=== PATIENT | male | born 1945 | race African-American/Black ===

== ENCOUNTER 2021-05-25 03:25 | Inpatient (IN) | payer OTHER ==
[~2021-05-25] VITALS: Ht 175.3 cm; Wt 74.8 kg
[2021-05-25 03:25] VITALS: BP 147/54
[2021-05-25 05:09] LABS: HEMOGLOBIN 9.3 gm/dL (14.0-18.0); RDW 19.8 % (10.5-14.5)
[2021-05-25 05:11] LABS: ABSOLUTE NEUTROPHILS 6.4 thou/uL (1.4-8.2); BASOPHILS 0.5 % (0.0-2.0); EOSINOPHILS 3.2 % (0.0-3.0); HEMATOCRIT 28.7 % (42.0-52.0); LYMPHOCYTES 27.5 % (24.0-44.0); MCH 26.5 pg (26.0-34.0); MCHC 32.5 g/dL (28.0-37.0); MCV 81.7 fL (80.0-100.0); MONOCYTES 6.6 % (1.0-8.0); PLATELET COUNT 415 thou/uL (150-400); POLYS 62.2 % (36.0-66.0); RBC 3.52 mil/uL (4.50-6.00); WBC 10.2 thou/uL (4.0-11.0)
[2021-05-25 05:18] LABS: CALCIUM 8.4 mg/dL (8.5-10.1); CREATININE 1.9 mg/dL (0.7-1.3); POTASSIUM 3.9 mmol/L (3.5-5.1)
[2021-05-25 05:25] LABS: ALBUMIN 2.5 g/dL (3.4-5.0); TOTAL BILIRUBIN 0.3 mg/dL (0.2-1.0); TOTAL PROTEIN 8.2 g/dL (6.4-8.2)
[2021-05-25 06:31] VITALS: BP 147/54
[2021-05-25 07:45] LABS: ALBUMIN 2.6 g/dL (3.4-5.0); TOTAL PROTEIN 8.3 g/dL (6.4-8.2)
[2021-05-25 07:56] VITALS: BP 126/61
[2021-05-25 10:54] LABS: % SATURATION 13 % (20-39); IRON 19 ug/dL (65-175); TIBC 149 ug/dL (250-450)
[2021-05-25 11:10] LABS: FOLIC ACID 19.7 ng/mL (8.6-58.9)
[2021-05-25 11:11] LABS: PROCALCITONIN 0.11 ng/mL (<0.50)
--- NOTE | 2021-05-25 11:48 | NUR ---
[age] YEAR OLD MALE ADMITTED TO [facility] ROOM 461. PT WAS BROUGHT INTO THE ER PER MAST FROM HOME AFTER FALLING FROM THE WHEELCHAIR. PT ALERT AND ORIENTED TIMES FOUR WITH AT FLAT SAD AFFECT. VSS, IVF INFUSING PER ORDER. PT C/O BLE PAIN PRN PAIN MEDICATION GIVEN WITH SOME RELEIF. BLE CELLULTIS WOUND CARE CONSULTED. PT TOLERATES MEDS AND MEALS. WILL CONTINUE TO MONITOR.
--- NOTE | 2021-05-25 15:33 | NUR ---
PT ADMITTED RELATED TO BILAT. LE CELLULITIS, SEPSIS. CM REVIEWED CHART AND SPOKE WITH CARE TEAM. CM MET WITH PT AT BEDSIDE THIS DAY. PT APPERARED TO BE A&O X4. CM ROLE INTRODUCED. PT INDICATED HE LIVES ALONE IN AN APARTMENT WITH ELEVATOR ACCESS. HE INDICATED THAT HE USES A POWER WC TO ASSIST WITH MOBILITY. HE INDICATED HE HAD BEEN ABLE TO TRANSFER HIMSELF. PT INDICATED HE HAD BEEN INDEPEDNENT WITH [facility]. PT INDICATED HE HAD BEEN ON SERVICE WITH [facility]. HE INDICATED THAT HIS PCP IS DR. ADITI BAGLEY. CM SPOKE WITH [facility] AND PT WAS ON SERVICE WITH THEM RELATED TO HIS BL LE WOUNDS THEY HAD BEEN ORDERED BY HIS PCP. PT INDICATED HE WOULDN'T BE RECEPTIVE TO SKILLED UPON DC. PT HOPES TO BE ABLE TO RETURN HOME WITH [facility] ONCE MEDICALLY STABLE. CM FOLLOWING REGARDING DC PLANNING.
[2021-05-25 15:48] VITALS: BP 125/46
[2021-05-25 19:56] VITALS: BP 148/52
[2021-05-25 22:06] LABS: GLYCOHEMOGLOBIN (HGB A1C) 5.7 % (4.8-5.6)
--- NOTE | 2021-05-26 03:22 | NUR ---
PT CARE ASSUMED WITH PT IN BED WATCHING TV AT 1900.PT IS A/O X4.PT IS ON BEDREST.PT HAS BLE EDEMA AND CELLULITIS.IV ACCES ON RT AC WITH NS AT 80CC/HR.PAIN MANAGED WITH TYLENOL.WOUND DRESSING DONE WITH SILVADINE/MORPHINE CREAM.PT IS ON RA.PT APPEARED TO BE IN NO ACUTE STRESS.WILL CONTINUE TO MONITOR
[2021-05-26 03:57] VITALS: BP 135/57
[2021-05-26 05:43] LABS: HEMOGLOBIN 7.9 gm/dL (14.0-18.0); MCH 27.6 pg (26.0-34.0); MCHC 34.5 g/dL (28.0-37.0); MCV 79.9 fL (80.0-100.0); RBC 2.87 mil/uL (4.50-6.00); RDW 19.5 % (10.5-14.5); WBC 9.6 thou/uL (4.0-11.0)
[2021-05-26 05:45] LABS: CALCIUM 7.7 mg/dL (8.5-10.1); CREATININE 1.5 mg/dL (0.7-1.3); POTASSIUM 4.1 mmol/L (3.5-5.1)
[2021-05-26] MEDS ORDERED: PREGABALIN50 MG PO (10:32)
[2021-05-26] MEDS ORDERED: LIDOCAINE35.44 GM TOP (10:32)
[2021-05-26] MEDS ORDERED: FLUDROCORTISON0.1 MG PO (10:34)
[2021-05-26] MEDS ORDERED: SANTYL OINTMENT30 G1 TOP (10:35)
[2021-05-26] MEDS ORDERED: ASPIRIN EC81 M1 PO (10:36)
[2021-05-26] MEDS ORDERED: NEURONTIN300 MG PO (10:37)
[2021-05-26] MEDS ORDERED: FEROSUL325 M1 PO (10:38)
[2021-05-26] MEDS ORDERED: ZOLOFT 50 MG TA50 MG PO (10:38)
[2021-05-26] MEDS ORDERED: SULFASALAZINE500 M1 PO (10:39)
[2021-05-26] MEDS ORDERED: DOXYCYCLINE HY100 MG PO (10:40)
[2021-05-26] MEDS ORDERED: PENTOXIFYLLINE400 MG PO (10:42)
[2021-05-26] MEDS ORDERED: ZESTRIL40 MG PO (10:43)
--- NOTE | 2021-05-26 16:11 | NUR ---
PT SEEN BY WC. PT ON IV VANC AND ZOSYN. CM GOT CALL FROM SAJI YANG WITH [facility]. CM FOLLOWING REGARDING DC PLANNING.
[2021-05-26 17:15] VITALS: BP 107/40
--- NOTE | 2021-05-26 18:38 | NUR ---
Assumed pt care at 10 am, vs stable. Wound care and dressing change done by wound care team. Pain is managed with medications, partial relief is noted. Stayed on the bed for most of the day, POC followed, endorsed tot he night nurse. Uses the urinal, stool sample pending.
[2021-05-26 19:20] VITALS: BP 120/55
[2021-05-27 05:23] LABS: HEMATOCRIT 23.8 % (42.0-52.0); HEMOGLOBIN 7.9 gm/dL (14.0-18.0); MCH 26.9 pg (26.0-34.0); MCV 81.3 fL (80.0-100.0); RBC 2.93 mil/uL (4.50-6.00); RDW 19.5 % (10.5-14.5); WBC 7.9 thou/uL (4.0-11.0)
[2021-05-27 05:46] LABS: CALCIUM 7.2 mg/dL (8.5-10.1); CREATININE 1.4 mg/dL (0.7-1.3); MAGNESIUM 1.8 mg/dL (1.8-2.4)
[2021-05-27 07:24] VITALS: BP 115/50
--- NOTE | 2021-05-27 08:50 | HC ---
[facility] [place] [address] CONSULTATION Name: GLADIS GIPSON Room #: 464-P ADM IN M.R.#: [id number] Admission: 05/25/21 Attend Phys: Jeremie Carter MD Discharge: Date of : 49 Report #: [id number] THIS REPORT FOR: cc: Percy Terrazas K. Steven DO Althoff, Jeffrey R. MD ~ DOC #: [id number] Joshua Anderson MD DATE OF SERVICE: 05/25/2021 CHIEF COMPLAINT: Bilateral lower extremity ulcerations. HISTORY OF PRESENT ILLNESS: This is a 75-year-old male patient with a history of rheumatoid arthritis and chronic ulcerations to both lower extremities. He is admitted to the hospital with increased pain, swelling and drainage to his legs and I have been asked to see him with regard to wound care. The patient has been receiving home health for dressing changes. He was originally admitted after having fallen out of his wheelchair. He states he has some pain in his knee, but the legs do not hurt quite as much. PAST MEDICAL HISTORY: Positive for history of peripheral artery disease, borderline diabetes, psoriatic arthritis, hypertension. He is wheelchair bound. SOCIAL HISTORY: Negative for alcohol or tobacco use. FAMILY HISTORY: Noncontributory. REVIEW OF SYSTEMS: CONSTITUTIONAL: The patient denies fever, chills, or weight loss. NEUROLOGICAL: The patient has generalized weakness. Denies focal weakness, some tingling. EYES: The patient denies visual changes, redness, or drainage. ENT: The patient denies earache, nasal drainage, sore throat. CARDIOVASCULAR: Denies chest pain, palpitations, or diaphoresis. PULMONARY: Denies cough or shortness of breath. GASTROINTESTINAL: Denies nausea, vomiting, diarrhea or abdominal pain. ORTHOPEDIC: The patient complains of pain in the left knee as well as swelling and ulceration, bilateral lower extremities. Others systems in a 14-point review of systems are negative. PHYSICAL EXAMINATION: VITAL SIGNS: At this time include temperature 36.6, pulse 99, respiration of 20, and blood pressure 125/46. GENERAL: This is a somewhat chronically ill-appearing male patient, appears to [place] [address] CONSULTATION Name: GLADIS GIPSON Room #: 464-P [facility] IN M.R.#: [id number] Admission: 05/25/21 Attend Phys: Jeremie Carter MD Discharge: Date of : 47 Report #: [id number] HEENT: Head normocephalic. Nose and throat clear. NECK: Supple. ABDOMEN: Soft, bowel sounds present. EXTREMITIES: Lower extremities demonstrate diminished distal pulses. He has venous dermatitis, bilateral lower extremities with multiple areas of ulceration both lower legs and ankle regions. There is mild erythema. This may just be inflammatory rather than infectious. 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 NEUROLOGIC: The patient is alert, oriented, and appropriate. LABORATORY DATA: Include sodium 138, potassium 3.9, chloride 105, CO2 20, BUN 70, creatinine 1.9, glucose 152. Albumin is 2.6. White blood cell count 10.2 with a hemoglobin of 9.3. CLINICAL IMPRESSION: 1. Venous ulcerations, bilateral lower extremities. 2. Venous stasis dermatitis 3. History of psoriatic arthritis. RECOMMENDATIONS: At this point in time, we will recommend continuation of his normal home medications. We will recommend topical gentamicin and Xeroform gauze to the open areas of his legs. We will recommend AmLactin to the venous dermatitis and compression with Kerlix and BENITO wrap, elevation at all times. We will check arterial Dopplers. Distal pulses are difficult to palpate. I appreciate being asked to see him in consultation. MD MIAH Yip/RAYMUNDO/KASIA <ELECTRONICALLY SIGNED> By: Joshua Anderson MD 05/27/21 0850 [id number] Joshua Anderson MD /chema
--- NOTE | 2021-05-27 13:50 | NUR ---
Nutrition: Pt admitted with fall, BLE cellulitis. Received wound consult. PMH reviewed. Hx DM but A1C 5.7, no accuchecks or DM meds. Generally eats 2 meals a day, eating well 75-100% of meals. RD discussed use of supplements, importance of protein/sources. pt voiced awareness. Adding ensure max daily. On ferrous sulfate. Do not recommend Carb controlled diet at this time. Pt voices stable weights, fluctuates between 165-175#. Current 165#. Low risk.
[2021-05-27 14:39] VITALS: BP 115/50
[2021-05-27 15:50] VITALS: BP 135/57
[2021-05-27] MEDS ORDERED: HYDROCODON-ACE1 EAC7 PO (16:01)
[2021-05-27] MEDS ORDERED: BACTRIM DS TAB1 EAC1 PO (16:01)
--- NOTE | 2021-05-27 16:25 | NUR ---
CARE TEAM INDICATED THAT PT IS MEDICALLY STABEL TO DC HOME THIS DAY. CM CALLED [facility] WHO PT HAD BEEN ON SERVICE WITH DIETETIC AIDE AND THEY INDICATED THAT THEY ARE ABLE TO RESUME SERVICES UPON DC. CM FAXED CLINIAL AND ORDERS TO [facility]. CM ARRANGED [facility] VAN MEDIEVAL ENGLISH LITERATURE PROFESSOR BETWEEN [phone]. PT IS AWARE AND AGREEABLE. NO OTHER CM INTERVENTION INDICATED. CASE CLOSED.
[2021-05-27 16:54] VITALS: BP 115/50
--- NOTE | 2021-05-27 17:07 | NUR ---
ASSUMED CARE OF PATIENT AT SHIFT CHANGE. ASSESSMENT CHARTED. MEDICATIONS ADMINISTERED PER EMAR. VSS. PATIENT IS A&OX4 AND IS ABLE TO MAKE NEEDS KNOWN. PATIENT IS CONSTANTLY VOICING PAIN; NERVE PAIN, RELIEVED BY SCHEDULED NERVE PAIN MEDS. IV ABX INFUSED ON NO ISSUES. WOUND CARE COMPLETE BY DR. BARROW, SEAT TRIMMER AND ARLENE. PATIENT UP TO CHAIR AND DID WELL. DEEMED MEDICALLY STABLE FOR DISCHARGE. PATIENT LEFT WITH WC TRANSPORTATION AT APPROX 1700. NO ISSUES NOTED
[2021-05-27 22:06] LABS: CYCLIC CITRULLINATED PEPTIDE 106 units (0-19)
== END 2021-05-27 17:35 | disposition home health service (06) | DRG 602 ==
LOC: ER 03:25 → 4W 05:44 → EROBS 05:44 → 4W 07:23
PROVIDERS: Emergency Medicine; Nurse Practitioner; Nurse Practitioner Family; ADMIT Internal Medicine; ATTEND Internal Medicine
DX: L03.116 Cellulitis of left lower limb (principal); N17.0 Acute kidney failure with tubular necrosis; E43 Unspecified severe protein-calorie malnutrition; L97.929 Non-pressure chronic ulcer of unspecified part of left lower leg with unspecified severity; L97.919 Non-pressure chronic ulcer of unspecified part of right lower leg with unspecified severity; I73.9 Peripheral vascular disease, unspecified; L03.115 Cellulitis of right lower limb; M19.90 Unspecified osteoarthritis, unspecified site; I87.2 Venous insufficiency (chronic) (peripheral); G62.9 Polyneuropathy, unspecified; N18.9 Chronic kidney disease, unspecified; E86.0 Dehydration; R53.81 Other malaise; L40.50 Arthropathic psoriasis, unspecified; M06.9 Rheumatoid arthritis, unspecified; G89.29 Other chronic pain; I12.9 Hypertensive chronic kidney disease with stage 1 through stage 4 chronic kidney disease, or unspecified chronic kidney disease; L30.8 Other specified dermatitis; M54.9 Dorsalgia, unspecified; Z60.2 Problems related to living alone; F32.9 Major depressive disorder, single episode, unspecified; D50.9 Iron deficiency anemia, unspecified; Z99.3 Dependence on wheelchair; Z79.82 Long term (current) use of aspirin; Z79.899 Other long term (current) drug therapy; Z79.52 Long term (current) use of systemic steroids; Z68.24 Body mass index [BMI] 24.0-24.9, adult
CPT/HCPCS: 10045

== ENCOUNTER → 2021-07-14 | Outpatient (CLI) | payer OTHER ==
[~2021-07-14] MED LIST: ASPIRIN EC81 M1 PO; BACTRIM DS TAB1 EAC1 PO; DOXYCYCLINE HY100 MG PO; FEROSUL325 M1 PO; FLUDROCORTISON0.1 MG PO; HYDROCODON-ACE1 EAC7 PO; LIDOCAINE35.44 GM TOP; NEURONTIN300 MG PO; NORCO5 PO; PENTOXIFYLLINE400 MG PO; PREGABALIN50 MG PO; SANTYL OINTMENT30 G1 TOP; SULFASALAZINE500 M1 PO; ZESTRIL40 MG PO; ZOLOFT 50 MG TA50 MG PO
== END ==
LOC: HYPER 09:14
PROVIDERS: ATTEND Emergency Medicine
DX: I87.333 Chronic venous hypertension (idiopathic) with ulcer and inflammation of bilateral lower extremity (principal); L97.812 Non-pressure chronic ulcer of other part of right lower leg with fat layer exposed; L97.822 Non-pressure chronic ulcer of other part of left lower leg with fat layer exposed; L03.115 Cellulitis of right lower limb; L03.116 Cellulitis of left lower limb; E11.40 Type 2 diabetes mellitus with diabetic neuropathy, unspecified; E11.51 Type 2 diabetes mellitus with diabetic peripheral angiopathy without gangrene; L40.52 Psoriatic arthritis mutilans; R60.0 Localized edema; R54 Age-related physical debility; R26.89 Other abnormalities of gait and mobility; E66.9 Obesity, unspecified; E44.0 Moderate protein-calorie malnutrition; M06.9 Rheumatoid arthritis, unspecified; F32.9 Major depressive disorder, single episode, unspecified; Z79.4 Long term (current) use of insulin; Z79.82 Long term (current) use of aspirin; Z68.25 Body mass index [BMI] 25.0-25.9, adult

== ENCOUNTER → 2021-07-21 | Outpatient (CLI) | payer OTHER | LOC: HYPER 09:20 | PROVIDERS: ATTEND Emergency Medicine | DX: I87.333 Chronic venous hypertension (idiopathic) with ulcer and inflammation of bilateral lower extremity (principal); L97.812 Non-pressure chronic ulcer of other part of right lower leg with fat layer exposed; L97.822 Non-pressure chronic ulcer of other part of left lower leg with fat layer exposed; L03.115 Cellulitis of right lower limb; L03.116 Cellulitis of left lower limb; E11.40 Type 2 diabetes mellitus with diabetic neuropathy, unspecified; E11.51 Type 2 diabetes mellitus with diabetic peripheral angiopathy without gangrene; L40.52 Psoriatic arthritis mutilans; R60.0 Localized edema; R54 Age-related physical debility; R26.89 Other abnormalities of gait and mobility; E66.9 Obesity, unspecified; E44.0 Moderate protein-calorie malnutrition; M06.9 Rheumatoid arthritis, unspecified; F32.9 Major depressive disorder, single episode, unspecified; Z79.4 Long term (current) use of insulin; Z79.82 Long term (current) use of aspirin; Z68.25 Body mass index [BMI] 25.0-25.9, adult ==

== ENCOUNTER → 2021-08-23 | Outpatient (CLI) | payer OTHER | LOC: HYPER 07:53 | PROVIDERS: ATTEND Emergency Medicine | DX: E11.622 Type 2 diabetes mellitus with other skin ulcer (principal); I87.333 Chronic venous hypertension (idiopathic) with ulcer and inflammation of bilateral lower extremity; L97.812 Non-pressure chronic ulcer of other part of right lower leg with fat layer exposed; L97.822 Non-pressure chronic ulcer of other part of left lower leg with fat layer exposed; L03.115 Cellulitis of right lower limb; L03.116 Cellulitis of left lower limb; E11.40 Type 2 diabetes mellitus with diabetic neuropathy, unspecified; E11.51 Type 2 diabetes mellitus with diabetic peripheral angiopathy without gangrene; L40.52 Psoriatic arthritis mutilans; R60.0 Localized edema; R54 Age-related physical debility; R26.89 Other abnormalities of gait and mobility; E66.9 Obesity, unspecified; E44.0 Moderate protein-calorie malnutrition; M06.9 Rheumatoid arthritis, unspecified; F32.9 Major depressive disorder, single episode, unspecified; Z79.4 Long term (current) use of insulin; Z79.82 Long term (current) use of aspirin; Z68.25 Body mass index [BMI] 25.0-25.9, adult ==

== ENCOUNTER → 2021-09-13 | Outpatient (CLI) | payer OTHER | LOC: HYPER 14:03 | PROVIDERS: ATTEND Emergency Medicine | DX: I87.333 Chronic venous hypertension (idiopathic) with ulcer and inflammation of bilateral lower extremity (principal); E11.622 Type 2 diabetes mellitus with other skin ulcer; L97.812 Non-pressure chronic ulcer of other part of right lower leg with fat layer exposed; L97.822 Non-pressure chronic ulcer of other part of left lower leg with fat layer exposed; E11.51 Type 2 diabetes mellitus with diabetic peripheral angiopathy without gangrene; E11.42 Type 2 diabetes mellitus with diabetic polyneuropathy; R60.0 Localized edema; R54 Age-related physical debility; R26.89 Other abnormalities of gait and mobility; L40.52 Psoriatic arthritis mutilans; L03.115 Cellulitis of right lower limb; L03.116 Cellulitis of left lower limb; E44.0 Moderate protein-calorie malnutrition; M06.9 Rheumatoid arthritis, unspecified; R21 Rash and other nonspecific skin eruption; L40.59 Other psoriatic arthropathy; E11.22 Type 2 diabetes mellitus with diabetic chronic kidney disease; N17.9 Acute kidney failure, unspecified; N18.9 Chronic kidney disease, unspecified; F41.0 Panic disorder [episodic paroxysmal anxiety]; F32.9 Major depressive disorder, single episode, unspecified; Z68.25 Body mass index [BMI] 25.0-25.9, adult; Z91.81 History of falling; Z79.4 Long term (current) use of insulin; Z79.82 Long term (current) use of aspirin; Z79.899 Other long term (current) drug therapy ==

== ENCOUNTER 2021-10-06 10:41 | Inpatient (IN) | payer OTHER ==
[~2021-10-06] VITALS: Ht 175.3 cm; Wt 70.1 kg
[2021-10-06 10:42] VITALS: BP 131/59
[2021-10-06 11:51] LABS: HEMATOCRIT 27.5 % (42.0-52.0); HEMOGLOBIN 8.7 gm/dL (14.0-18.0); MCH 25.4 pg (26.0-34.0); MCHC 31.8 g/dL (28.0-37.0); MCV 79.9 fL (80.0-100.0); PLATELET COUNT 457 thou/uL (150-400); RBC 3.44 mil/uL (4.50-6.00); RDW 21.2 % (10.5-14.5); WBC 26.4 thou/uL (4.0-11.0)
[2021-10-06 12:08] LABS: CALCIUM 8.4 mg/dL (8.5-10.1); CREATININE 4.2 mg/dL (0.7-1.3); POTASSIUM 4.9 mmol/L (3.5-5.1)
[2021-10-06 12:14] LABS: ALBUMIN 2.2 g/dL (3.4-5.0); TOTAL BILIRUBIN 0.5 mg/dL (0.2-1.0); TOTAL PROTEIN 8.6 g/dL (6.4-8.2)
[2021-10-06 13:03] LABS: ABSOLUTE NEUTROPHILS 21.1 thou/uL (1.4-8.2)
[2021-10-06 22:38] VITALS: BP 101/44
[2021-10-06 23:05] VITALS: BP 101/44
[2021-10-06 23:22] VITALS: BP 109/51
[2021-10-07 04:00] VITALS: BP 111/45
--- NOTE | 2021-10-07 05:30 | NUR ---
ADMIT PT ADMITTED TO ROOM 359 FROM ED BEING ADMITED WITH BILATERAL LOWER EXTREMETY CELLULITIS, AND ARF. IV TO RH INFUSING NS@75CC/HR. PT ORIENTED TO ROOM, CALL LIGHT SYSTEM, AND POC. BOTH LOWER LEGS WITH ERYTHEMA, WEEPING, LARGE AREAS OF SLOUGH. PICTURES TAKEN AND PLACED IN CHART. ANTIBIOTICS ADMINISTERED ORDERED AND YDROCODONE FOR PAIN. CONTINUE POC.
[2021-10-07 07:38] VITALS: BP 93/44
[2021-10-07 08:52] LABS: HEMATOCRIT 27.9 % (42.0-52.0); HEMOGLOBIN 8.5 gm/dL (14.0-18.0); MCH 25.1 pg (26.0-34.0); MCHC 30.4 g/dL (28.0-37.0); MCV 82.4 fL (80.0-100.0); PLATELET COUNT 461 thou/uL (150-400); RBC 3.39 mil/uL (4.50-6.00); RDW 21.5 % (10.5-14.5); WBC 23.3 thou/uL (4.0-11.0)
[2021-10-07 09:16] LABS: ALBUMIN 1.9 g/dL (3.4-5.0); MAGNESIUM 2.2 mg/dL (1.8-2.4); TOTAL BILIRUBIN 0.5 mg/dL (0.2-1.0); TOTAL PROTEIN 6.9 g/dL (6.4-8.2)
[2021-10-07 09:26] LABS: CREATININE 3.2 mg/dL (0.7-1.3)
[2021-10-07 10:50] LABS: POTASSIUM 4.8 mmol/L (3.5-5.1)
[2021-10-07 12:19] LABS: ABSOLUTE NEUTROPHILS 21.9 thou/uL (1.4-8.2)
[2021-10-07 12:20] LABS: ANISOCYTOSIS 1+; BURR CELLS FEW; MACROCYTES 1+; TARGET CELLS FEW
--- NOTE | 2021-10-07 14:07 | NUR ---
INITIAL ASSESSMENT: Received consult. TJ reviewed chart and spoke with nursing and attending physician. Pt was admitted from home. Pt was at Dr. Moreira's office for a wound care follow up appt. Pt with BLE cellulitis. Pt is currently on IV abx. Wound care and ID consulted. TJ met with pt at bedside. Introduced role of SW. Pt is alert/orientated x 4. Pt reports he lives at home alone in an apt. The apt building has an elevator. Prior to admission, pt was using a scooter for mobility. Pt is currently on service with [facility]. Pt's PCP is DR. Harish Terrazas. Pt states his sister and nephew are supportive. Therapy evals ordered. Pt was unable to work with therapy earlier today due to BLE pain. No weekend discharge planned. TJ confirmed with Samantha at [facility] that pt is on service. Pt will need insurance auth for post-acute placement. TJ is following to assist as needed with discharge planning.
[2021-10-07 15:31] VITALS: BP 105/52
--- NOTE | 2021-10-07 18:35 | NUR ---
assumed care of pt at 0700. pt alert and oriented, lethargic. bp low but stable. complains of pain BLE. dressings changed per order. condom cath in place. ok to eat per speech therapy. turned q2h and prn. pt calls out appropriately. wcm.
[2021-10-07 19:33] VITALS: BP 84/47
[2021-10-07 21:10] VITALS: BP 100/50
[2021-10-08 00:18] VITALS: BP 99/48
[2021-10-08 05:00] VITALS: BP 95/47
--- NOTE | 2021-10-08 05:53 | NUR ---
Patient making some progress towards outcome goals. Vital signs and rhythm stable. High fall risks, fall precautions in place. Cellulitis BLE, dressing dry and intact. High fall risks, fall precautions in place. Uses call light appropriately for needs.
[2021-10-08 08:01] VITALS: BP 93/49
[2021-10-08 15:44] VITALS: BP 97/50
--- NOTE | 2021-10-08 18:09 | NUR ---
assumed care of pt at 0700. pt alert and oriented, somewhat lethargic. small appetite. condom cath in place. dressings changed per order. analgesics given prn. turned q2h and prn. vitals stable. ivf infusing per order. code clerk unable to draw vanc trough - rescheduled for tomorrow. calls out appropriately. no evnets on telemetry.
[2021-10-08 20:45] VITALS: BP 102/42
[2021-10-09 06:30] VITALS: BP 93/53
[2021-10-09 07:18] VITALS: BP 100/53
--- NOTE | 2021-10-09 07:45 | NUR ---
Requested pain med for leg pain with some relief. He has been repositioned for comfort. He slept well during the night. Bed alarm on for safety and he calls appropriately. Dressing on bilateral lower extremities intact , elevated with pillows. IV on right hand came out and new one placed on left hand last night.
[2021-10-09 15:16] VITALS: BP 94/51
--- NOTE | 2021-10-09 18:43 | NUR ---
PATIENT WAS ALERT AND ORIENTED X4 THIS SHIFT. HE HAS BEEN VERY SLEEPY BUT IS EASILY ROUSED. PATIENT HAS BEEN LEANING TOWARDS HIS LEFT SIDE, PATIENT REPORTS THAT HE ALWAYS LEANS TOWARDS HIS LEFT SIDE. PATIETNS LUNGS ARE CLEAR BUT DIMINISHED IN THE BASES. HE IS ON ROOM AIR. PATIENT IS MS TELE AND HAS BEEN IN FIRST [employer]GREE AV BLOCK BUT SINUS RYTHM IN THE 80'S. PATIENT HAS AN EXTERNAL MALE CATHETER. HIS URINE IS YELLOW. HIS LAST BM WAS ON 10/05/21. PATIENT HAS CELLULITIS TO BOTH OF HIS LOWER EXTREMITIES. PATIENTS DRESSING WERE CHANGED THIS SHIFT. PATIENTS IV IS IN HIS LEFT HAND WITH NS AT 126. PATIENTS VANC TROUGH WAS 15. PATIENT WILL CONTINUE TO BE MONITORED.
[2021-10-09 19:04] VITALS: BP 99/50
[2021-10-10 04:00] VITALS: BP 101/52
--- NOTE | 2021-10-10 06:02 | NUR ---
Patient progressingtowards outcome goals. Chronic bilateral legs burning,patient denies need for pain medication now. Prefers to take before dressing changes. Vital signs and rhythm stable. IVFluids infusing. External male catheter intact, good urine output. High fall risks, fall precautions in place.
[2021-10-10 07:08] VITALS: BP 108/45
[2021-10-10 08:43] LABS: WBC 13.6 thou/uL (4.0-11.0)
[2021-10-10 08:44] LABS: HEMATOCRIT 20.7 % (42.0-52.0); MCH 25.5 pg (26.0-34.0); MCHC 31.6 g/dL (28.0-37.0); MCV 80.7 fL (80.0-100.0); RBC 2.57 mil/uL (4.50-6.00); RDW 22.1 % (10.5-14.5)
[2021-10-10 08:50] LABS: CALCIUM 6.5 mg/dL (8.5-10.1); CREATININE 1.8 mg/dL (0.7-1.3); MAGNESIUM 1.3 mg/dL (1.8-2.4); POTASSIUM 3.7 mmol/L (3.5-5.1)
[2021-10-10 08:54] LABS: HEMOGLOBIN 6.5 gm/dL (14.0-18.0)
--- NOTE | 2021-10-10 13:14 | NUR ---
10/10/21 1314 MADE PT AWARE EARLIER THAT HIS HEMOGLOBIN WAS LOW AND ,IGHT NEED A TRANSFUSION. WENT IN TO GET CONSENT, PT REFUSE TRANSFUSION KRISHNA, STATED LAST TIME HE HAD A TRANSFUSION HE HAD SOME ITCHING AND NOT SURE IF HE WANTS IT, RIGHT NOW. WILL LIKE TO WAIT UNTIL TOMORROW TO SEE IF HIS H&H COMES UP. DR. MONTGOMERY MADE AWARE OF PT DECISION. TRANSUSION ORDER IS ON HOLD KRISHNA.
--- NOTE | 2021-10-10 14:59 | NUR ---
TJ reviewed chart and spoke with nursing and attending physician. ID consulted. Pt is on IV abx. TJ met with pt at bedside to discuss discharge plan. Recommendation made for pt to go to post-acute for wound care and therapy. TJ discussed options with pt. Pt states he has been to [facility] in the past. Pt would like to consider alternate options. In-network SNF list provided to pt. Pt requests referral to be sent to [facility]. TJ faxed referral and notified Emma and Jonathon in admissions of new referral. Will need insurance auth for admission to SNF. TJ is following to assist as needed with discharge planning.
[2021-10-10 15:12] VITALS: BP 110/58
[2021-10-10 18:57] VITALS: BP 106/43
[2021-10-11 05:34] LABS: MCH 25.8 pg (26.0-34.0); MCV 80.5 fL (80.0-100.0); RBC 2.47 mil/uL (4.50-6.00); RDW 22.3 % (10.5-14.5); WBC 11.7 thou/uL (4.0-11.0)
--- NOTE | 2021-10-11 05:44 | NUR ---
PT MAKING SLOW PROGRESS TOWARDS GOALS. GIVEN LORTAB FOR PAIN PER ORDERS. "IT HELPS A LITTLE I GUESS." DRESSINGS TO LEG D/I.
[2021-10-11 05:51] LABS: HEMATOCRIT 19.9 % (42.0-52.0); HEMOGLOBIN 6.4 gm/dL (14.0-18.0)
[2021-10-11 06:07] LABS: CALCIUM 6.4 mg/dL (8.5-10.1); CREATININE 1.8 mg/dL (0.7-1.3); POTASSIUM 3.5 mmol/L (3.5-5.1)
[2021-10-11 07:08] VITALS: BP 85/49
--- NOTE | 2021-10-11 08:08 | HC ---
[facility] [place] [address] CONSULTATION Name: GLADIS GIPSON Room #: 359-P [facility] IN .R.#: [id number] Admission: 10/06/21 Attend Phys: Steve Mejia MD Discharge: Date of : 47 Report #: [id number] THIS REPORT FOR: cc: Percy Terrazas K. Steven DO Barry, Joseph W. MD ~ DATE OF SERVICE: 10/10/2021 INFECTIOUS DISEASE CONSULTATION REASON FOR EVALUATION: Bilateral lower extremity inflammatory eruption with chronic ulcerations complicated by deep-seated infection. HISTORY OF PRESENT ILLNESS: Chart reviewed. The patient examined. This is a 76-year-old gentleman who has underlying diabetes mellitus, psoriatic arthritis and has known vasculopathy and peripheral neuropathy. Apparently, he is wheelchair bound. He is unable to give details of his history. Apparently, he has had longstanding lower extremity ulcers, venous stasis insufficiency, who was admitted at the request of the wound care center with worsening appearance of the legs. He notes severe pain bilaterally. It is not clear to him whether he had fevers. He has had a diminished p.o. intake. He has had a weight loss of perhaps 30 pounds. He was felt to have a deep-seated infection, so we started on empiric therapy with vancomycin and Zosyn. He did have blood cultures collected at the time, which were sterile thus far. ALLERGIES: None known. CURRENT MEDICATIONS: Vancomycin, Zosyn, gabapentin, aspirin, sertraline. PAST MEDICAL HISTORY: As described above, borderline diabetes, hypertension, peripheral arterial disease, neuropathy, psoriatic arthritis. He is wheelchair bound. SOCIAL HISTORY: Nonsmoker, no ethanol, no illicit drug use. FAMILY HISTORY: Noncontributory. REVIEW OF SYSTEMS: As described above. PHYSICAL EXAMINATION: GENERAL: He is chronically ill. He is pleasant, at least mildly encephalopathic. He is clearly chronically ill-appearing, undernourished, in moderate distress. VITAL SIGNS: Temperature 98.6, pulse 99, respirations 16, blood pressure 108/45. SKIN: Warm, dry. [facility] [address] [place] [address] CONSULTATION Name: GLADIS GIPSON Room #: 359-P [facility] IN ..#: [id number] Admission: 10/06/21 Attend Phys: Steve Mejia MD Discharge: Date of : 47 Report #: [id number] HEENT: Normocephalic. Extraocular muscles intact. NECK: Supple. LUNGS: Diminished breath sounds. HEART: Borderline tachycardic, appears to be regular. I do not appreciate a murmur. ABDOMEN: Generally soft, no apparent tenderness. EXTREMITIES: Bilateral lower extremities were evaluated. I removed the dressings. There is a marked inflammatory eruption involving at least retirement up the lower extremities bilaterally. It involves the foot. There is purulent drainage associated with the distal foot bilaterally. Changes of chronic dermopathy suggests he has underlying venous stasis insufficiency, probably some arterial disease as well. Exquisitely tender to palpation. Wounds are primarily superficial except with the 1 that potentially has some depth to it involving the plantar aspect on the right. GENITOURINARY AND RECTAL: Deferred. LABORATORY DATA: Most recent CBC, white count of 13.6, H and H 6.5 and 20.7, platelets of 354. Electrolytes: Sodium 142, potassium 3.7, chloride 114, bicarbonate 16, anion gap of 12, BUN and creatinine 13 and 1.8. Vancomycin trough of 15. Blood cultures sterile thus far. Sed rate greater than 125. Liver function tests otherwise unremarkable. Albumin 1.9, total protein 6.9. Blood cultures described above. The right foot was evaluated with plain film showed no fracture or osseous destruction. ASSESSMENT AND PLAN: Bilateral lower extremity inflammatory eruption, extensive ulceration. It appears to be primarily superficial complicated by skin and soft tissue infection. Now the clinical appearance certainly suggests there may be more deep involvement. We will continue empiric therapy with vancomycin and Zosyn. Wound care as prescribed. Whether we need additional imaging, would probably benefit from operative debridement at this point. I will discuss with Dr. Bautista, wound care. Since he has significant overall disease burden, he may be at significant risk for clinical deterioration and nosocomial related complications. <ELECTRONICALLY SIGNED> By: Jorge Cason MD 10/11/21 0808 [id number] Jorge Cason MD /nt
[2021-10-11 10:06] VITALS: BP 113/56; BP 115/58; BP 127/63
--- NOTE | 2021-10-11 11:06 | NUR ---
TJ reviewed chart and spoke with nursing and attending physician. Pt to have blood transfusion today. Hemoglobin dropped to 6.4. Pt remains on IV abx. [facility] is able to accept pt pending insurance authorization. TJ met with pt at bedside to provide update. Pt is agreeable with plan to d/c to [facility]. TJ updated Emma and Jonathon in admissions at [facility]. Request for insurance auth submitted this morning. Jonathon to meet with pt at bedside today. TJ is following to assist as needed with discharge planning.
[2021-10-11 15:10] VITALS: BP 105/53
--- NOTE | 2021-10-11 15:49 | NUR ---
PT AGREED FOR BLOOD TRANSFUSION TODAY. TRASFUSION GIVEN NO REACTION NOTED. VITAL SIGNS STABLE. WOUND CARE COMOLETED BY WOUND CARE TEAM. EXTERNAL CATHETER IN PLACE. INCONTINENT AT TIMES. FALL PRECAUTIONS IN PLACE. DENIES ANY NEEDS KRISHNA, WILL CONTINUE TO MONITOR
[2021-10-11 17:13] LABS: HEMATOCRIT 24.5 % (42.0-52.0); HEMOGLOBIN 7.9 gm/dL (14.0-18.0)
[2021-10-11 18:58] VITALS: BP 114/59
[2021-10-12 04:06] VITALS: BP 115/62
[2021-10-12 06:01] LABS: HEMATOCRIT 23.7 % (42.0-52.0); HEMOGLOBIN 7.7 gm/dL (14.0-18.0); MCH 26.7 pg (26.0-34.0); MCHC 32.7 g/dL (28.0-37.0); MCV 81.7 fL (80.0-100.0); RBC 2.9 mil/uL (4.50-6.00); RDW 21.9 % (10.5-14.5); WBC 12.3 thou/uL (4.0-11.0)
--- NOTE | 2021-10-12 06:09 | NUR ---
PT MAKING SLOW PROGRESS TOWARDS GOALS. PT REPORTING PAIN FREQUENTLY AT 6/10. STATES HE DOESN'T BELIEVE THAT THE LORTAB HELPS HIS PAIN MUCH. PT ASLEEP X2 AFTER DOSING WITH LORTAB PER ORDERS, OVERNIGHT.
[2021-10-12 07:15] VITALS: BP 119/59
[2021-10-12] MEDS ORDERED: CIPRO500 M1 PO (11:04)
[2021-10-12] MEDS ORDERED: MINOCYCLINE HC100 M2 PO (14:34)
--- NOTE | 2021-10-12 14:48 | NUR ---
DISCHARGE NOTE: TJ reviewed chart and spoke with nursing and attending physician. Pt is medically stable for discharge. SW was notified by [facility] admissions that they received insurance auth and can accept pt today. W/c van transportation scheduled for [phone] per facility's arrangements. Pt has his own electric w/c in his room. TJ faxed discharge ppwk to [facility]. Confirmed info was received. TJ met with pt at bedside to provide update. Pt agreeable with discharge plan. TJ offered to contact pt's family to notify them of pt's discharge. Pt states he will let them know. Chart copy requested. Nursing provided with number to call report. SW was notified that pt states he does not feel ready for discharge. TJ notified attending physician and requested physician speak with pt. No additional SW needs identified at this time. TJ updated Jeanine in intake at [facility] of pt's discharge disposition. TJ is available to assist should needs arise.
--- NOTE | 2021-10-12 15:19 | NUR ---
called [facility] to give them report, no answer. will try again.
--- NOTE | 2021-10-12 17:24 | NUR ---
wound care completed, pictures taken. order for discharge to [facility] in. iv and tele d/c. All belongings with pt. Pt went in his electric wheelchair. Called [facility] a couple times to give report, no answer.
--- NOTE | 2021-10-19 08:36 | HC ---
[facility] [place] [address] CONSULTATION Name: GLADIS GIPSON Room #: 359-P [facility] IN M.Mat.#: [id number] Admission: 10/06/21 Attend Phys: Steve Mejia MD Discharge: 10/12/21 Date of : 47 Report #: [id number] THIS REPORT FOR: cc: Percy Terrazas K. Steven DO Althoff, Jeffrey R. MD ~ DATE OF SERVICE: 10/07/2021 CHIEF COMPLAINT: Bilateral lower extremity ulcerations. HISTORY OF PRESENT ILLNESS: This is a 76-year-old male patient who presented to the Emergency Department with lower extremity ulcerations that are worsening. He has been seen in the wound clinic by Dr. Titus who have also seen him here in the hospital. He was last hospitalized in May. He is mostly somnolent at this time, not able to offer much input about himself. The patient has a history of rheumatoid arthritis and psoriasis. PAST MEDICAL HISTORY: Peripheral arterial disease, hypertension, borderline diabetes, psoriatic arthritis, history of sciatica, peripheral neuropathy. He is wheelchair bound. SOCIAL HISTORY: Negative for alcohol or tobacco use. FAMILY HISTORY: Noncontributory. MEDICATIONS: At this time includes aspirin, collagenase, fludrocortisone, gabapentin, hydrocodone, lidocaine, pregabalin, sertraline, Bactrim. ALLERGIES: No known drug allergies. REVIEW OF SYSTEMS: Mostly not obtainable as the patient is somnolent and unable to answer questions at this time. PHYSICAL EXAMINATION: VITAL SIGNS: At this time include temperature 36.3, pulse 82, respiration 18, blood pressure 93/44. GENERAL: This is a chronically ill-appearing male patient who appears to be once again sleeping. HEENT: Head is normocephalic. NECK: Supple. LUNGS: Diminished. HEART: Irregular. ABDOMEN: Soft, bowel sounds present. EXTREMITIES: Lower extremities demonstrate diminished distal pulses, but the feet are pink and there is only slightly delayed capillary refill. He has venous stasis dermatitis involving both lower legs as well as the feet with [facility] [address] [place] [address] CONSULTATION Name: GLADIS GIPSON Hiro Room #: 359-P [facility].#: [id number] Admission: 10/06/21 Attend Phys: Steve Mejia MD Discharge: 10/12/21 Date of : 49 Report #: [id number] ulcerations on the dorsal aspects of both feet with some mild erythema. LABORATORY STUDIES: Include white blood cell count of 23,000, down from 26,000 on admission, hemoglobin of 8.5, hematocrit of 27.9. Sodium 143, potassium 4.8, chloride 111, CO2 of 15, BUN 76, creatinine 3.2. Albumin is low at 1.9. CLINICAL IMPRESSION: 1. Venous stasis dermatitis and venous ulcerations, bilateral lower extremities. 2. Acute kidney injury. 3. Anemia. 4. Borderline diabetes. 5. Hypertension. 6. Psoriatic arthritis. 7. Generalized debility. 8. Severe protein-calorie malnutrition with albumin of 1.9. 9. Peripheral arterial disease. DIAGNOSTIC DATA: Arterial Doppler was performed on 05/25/2021, which did demonstrate monophasic flow throughout the superficial femoral artery, posterior tibial artery and dorsalis pedis of both lower extremities, but no focal velocity acceleration suggested high-grade stenosis. The Doppler at that time was reviewed with Dr. Jensen and there was no planned intervention back in May. RECOMMENDATIONS: At this point in time, we will recommend moisturizer Aquaphor, Xeroform, ABD, Kerlix and Morris to bilateral lower extremities. Management of his underlying psoriatic arthritis per Rheumatology recommendations. Aggressive hydration. He will need significant nutritional support. I appreciate being asked to see him in consultation. <ELECTRONICALLY SIGNED> By: Joshua Anderson MD 10/19/21 0836 [id number] Joshua Anderson MD /nt
== END 2021-10-12 16:26 | DRG 871 ==
LOC: ER 10:41 → 3W 12:36 → EROBS 12:36 → 3W 23:39
PROVIDERS: Hospitalist; Student in an Organized Health Care Education/Training Program; ADMIT Internal Medicine; ATTEND Internal Medicine
PROC: 30233N1 Transfusion of Nonautologous Red Blood Cells into Peripheral Vein, Percutaneous Approach (ICD-10-PCS; principal; 2021-10-11)
DX: A41.9 Sepsis, unspecified organism (principal); E43 Unspecified severe protein-calorie malnutrition; G92.9 Unspecified toxic encephalopathy; L03.116 Cellulitis of left lower limb; L03.115 Cellulitis of right lower limb; N17.9 Acute kidney failure, unspecified; D62 Acute posthemorrhagic anemia; E11.42 Type 2 diabetes mellitus with diabetic polyneuropathy; Z79.4 Long term (current) use of insulin; Z68.22 Body mass index [BMI] 22.0-22.9, adult; Z20.822 Contact with and (suspected) exposure to COVID-19
CPT/HCPCS: 10879

== ENCOUNTER 2021-11-30 11:04 | Inpatient (IN) | payer OTHER ==
[~2021-11-30] VITALS: Ht 152.4 cm; Wt 64.0 kg
--- NOTE | ~2021-11-30 | EMS ---
[facility] [address] [place] [address] EMS Patient Care Report Name: GLADIS GIPSON Room #: 438-P ADM IN M.R.#: [id number] Admission: 11/30/21 Attend Phys: Steve Mejia MD Discharge: Date of : 49 Report #: [id number] THIS REPORT FOR: //name// Report Transmitted: 12/01/2021 08:42 EMS Care Summary [place], [place]/[facility] Incident [id number] @ 11/30/2021 10:25 Incident Location [address] [place] [address] 325 Patient GLADIS GIPSON Male, 76 Years 1945 Patient Address [address] [place] [address] [phone] Patient History Rheumatoid Arthritis, Patient Allergies No known allergies, Patient Medications Unknown, Chief Complaint weeping leg wound Disposition Transported No Lights/[place] Dispatch Reason Falls Transported To [facility] Narrative M36 dispatched on a fall. M36 arrived to apartment building to find PT on third floor of building. PT found seated on ground in apartment doorway to bedroom. PT stated he slid out of his wheelchair while trying to get dressed today. PT [facility] [address] [place] [address] EMS Patient Care Report Name: GLADIS GIPSON Room #: 438-P ADM IN Cassie#: [id number] Admission: 11/30/21 Attend Phys: Steve Mejia MD Discharge: Date of : 49 Report #: [id number] stated weeping leg wounds as chief complaint. PT stated additional complaint of sacral pain and not being able to take care of himself anymore. PT lifted to stretcher by EMS. PT secured to stretcher with blanket and seatbelts. PT found to have a trash bag wrapped around right foot. PT stated lower legs had been weeping for at least two weeks. PT unable to recall medications. PT unable to recall most medical history. PT denied allergies. Strong odor found to be coming from lower extremities. PT stated recent history of pneumonia in August of last year. PT vitals monitored during transport. PT report given. PT moved to hospital bed via four person sheet lift. PT care and belongings transferred to ER staff at [facility] without incident. M36 placed back in service. Initial Vitals @10:55P: 108,R: 18,BP: 122/72,Pain: 10/10,GCS: 15,SpO2: 97,Revised Trauma: 12, @10:48P: 114,R: 18,BP: 131/65,Pain: 9/10,GCS: 15,SpO2: 95,Revised Trauma: 12, Assessments @10:49MENTAL:Time Oriented,Person Oriented,Event Oriented,Place Oriented,SKIN:Pale,HEENT:Head/Face: Drainage,LUNG SOUNDS:General: Diarrhea,ABDOMEN:General: Diarrhea,PELVIS//GI:Incontinence,EXTREMITIES:Left Leg: Weakness,Right Leg: Weakness,Right Leg: Edema,Left Leg: Edema,PULSE:Radial: 2+ Normal,NEURO: Impression Extremity Pain Procedures @10:49 ALS Assessment Response: UnchangedSucceeded Timeline 10:24,Call Received 10:24,Dispatch Notified 10:25,Dispatched 10:26,En Route 10:33,On Scene 10:35,At Patient 10:48,BP: 131/65 M,PULSE: 114,RR: 18 R,SPO2: 95 Ox,ETCO2: ,BG: ,PAIN: 9,GCS: 15, 10:49,ALS Assessment,Response: UnchangedSucceeded, 10:50,Depart Scene 10:55,BP: 122/72 M,PULSE: 108,RR: 18 R,SPO2: 97 Ox,ETCO2: ,BG: ,PAIN: 10,GCS: 15, 11:00,At Destination 11:16,Call Closed [facility] [address] [address] EMS Patient Care Report Name: GLADIS GIPSON Room #: 438-P [facility] IN .R.#: [id number] Admission: 11/30/21 Attend Phys: Steve Mejia MD Discharge: Date of : 47 Report #: [id number] Disclaimer v1.1 Copyright 2021 [employer] This EMS Care Summary contains data elements from the applicable legal record (which may be displayed differently). It is designed to provide pertinent information for the following purposes: continuity of care, clinical quality, and state data reporting. The complete legal record is available to ED staff and administrators of the receiving hospital in [facility]'s Patient Tracker. All data is provided "as is."
--- NOTE | ~2021-11-30 | EMS ---
[facility] [address] [place] [address] EMS Patient Care Report Name: GLADIS GIPSON Room #: REG PARVEEN Matthews#: [id number] Admission: 11/30/21 Attend Phys: Discharge: Date of : 49 Report #: [id number] THIS REPORT FOR: //name// Report Transmitted: 11/30/2021 11:18 EMS Care Summary [place], [place]/[facility] Incident [id number] @ 11/30/2021 10:25 Incident Location [address] [place] [address] 325 Patient GLADIS GIPSON Male, 76 Years 1945 Patient Address [address] [place] [address] 325 [place] [id number] Patient History Rheumatoid Arthritis, Patient Allergies No known allergies, Patient Medications Unknown, Chief Complaint weeping leg wound Disposition Transported No Lights/[place] Dispatch Reason Falls Transported To [facility] Narrative M36 dispatched on a fall. M36 arrived to apartment building to find PT on third floor of building. PT found seated on ground in apartment doorway to bedroom. PT stated he slid out of his wheelchair while trying to get dressed today. PT [facility] [address] [place] [address] EMS Patient Care Report Name: GLADIS GIPSON Room #: REG Cassie#: [id number] Admission: 11/30/21 Attend Phys: Discharge: Date of : 49 Report #: [id number] stated weeping leg wounds as chief complaint. PT stated additional complaint of sacral pain and not being able to take care of himself anymore. PT lifted to stretcher by EMS. PT secured to stretcher with blanket and seatbelts. PT found to have a trash bag wrapped around right foot. PT stated lower legs had been weeping for at least two weeks. PT unable to recall medications. PT unable to recall most medical history. PT denied allergies. Strong odor found to be coming from lower extremities. PT stated recent history of pneumonia in August of last year. PT vitals monitored during transport. PT report given. PT moved to hospital bed via four person sheet lift. PT care and belongings transferred to ER staff at [facility] without incident. M36 placed back in service. Initial Vitals @10:55P: 108,R: 18,BP: 122/72,Pain: 10/10,GCS: 15,SpO2: 97,Revised Trauma: 12, @10:48P: 114,R: 18,BP: 131/65,Pain: 9/10,GCS: 15,SpO2: 95,Revised Trauma: 12, Assessments @10:49MENTAL:Place Oriented,Event Oriented,Person Oriented,Time Oriented,SKIN:Pale,HEENT:Head/Face: Drainage,LUNG SOUNDS:General: Diarrhea,ABDOMEN:General: Diarrhea,PELVIS//GI:Incontinence,EXTREMITIES:Left Leg: Edema,Right Leg: Edema,Right Leg: Weakness,Left Leg: Weakness,PULSE:Radial: 2+ Normal,NEURO: Impression Extremity Pain Procedures @10:49 ALS Assessment Response: UnchangedSucceeded Timeline 10:24,Call Received 10:24,Dispatch Notified 10:25,Dispatched 10:26,En Route 10:33,On Scene 10:35,At Patient 10:48,BP: 131/65 M,PULSE: 114,RR: 18 R,SPO2: 95 Ox,ETCO2: ,BG: ,PAIN: 9,GCS: 15, 10:49,ALS Assessment,Response: UnchangedSucceeded, 10:50,Depart Scene 10:55,BP: 122/72 M,PULSE: 108,RR: 18 R,SPO2: 97 Ox,ETCO2: ,BG: ,PAIN: 10,GCS: 15, 11:00,At Destination 11:16,Call Closed [facility] [address] [place] [address] EMS Patient Care Report Name: GLADIS GIPSON Room #: REG [facility]#: [id number] Admission: 11/30/21 Attend Phys: Discharge: Date of : 49 Report #: [id number] Disclaimer v1.1 Copyright 2021 [employer] This EMS Care Summary contains data elements from the applicable legal record (which may be displayed differently). It is designed to provide pertinent information for the following purposes: continuity of care, clinical quality, and state data reporting. The complete legal record is available to ED staff and administrators of the receiving hospital in [employer]'s Patient Tracker. All data is provided "as is."
[~2021-11-30 11:04] MED LIST changes: +CIPRO500 M1 PO; +MINOCYCLINE HC100 M2 PO
[2021-11-30 11:09] VITALS: BP 102/51
[2021-11-30 11:56] LABS: HEMATOCRIT 26.8 % (42.0-52.0); HEMOGLOBIN 8.6 gm/dL (14.0-18.0); MCH 24.9 pg (26.0-34.0); MCHC 32.2 g/dL (28.0-37.0); MCV 77.4 fL (80.0-100.0); RBC 3.46 mil/uL (4.50-6.00); RDW 22.2 % (10.5-14.5); WBC 10.3 thou/uL (4.0-11.0)
[2021-11-30 13:08] LABS: ALBUMIN 2.3 g/dL (3.4-5.0); CALCIUM 8.3 mg/dL (8.5-10.1); CREATININE 3.4 mg/dL (0.7-1.3); TOTAL BILIRUBIN 0.6 mg/dL (0.2-1.0); TOTAL PROTEIN 8.6 g/dL (6.4-8.2)
[2021-11-30 13:19] LABS: POTASSIUM 2.9 mmol/L (3.5-5.1)
[2021-11-30 15:19] LABS: APTT 27.4 Seconds (24.5-32.8); INR 0.9; PROTIME 9.9 Seconds (9.3-11.4)
--- NOTE | 2021-11-30 20:24 | NUR ---
PT. VOIDED 250CC YELLOW URINE ATE 100% DINNER 120CC PO INTAKE WITH MEAL
[2021-11-30 21:15] VITALS: BP 80/34
--- NOTE | 2021-12-01 00:31 | NUR ---
PT. VOIDED 350CC IN URINAL
--- NOTE | 2021-12-01 05:50 | NUR ---
MULTIPLE ATTEMPTS TO START piv WERE ATTEMPTED BY MYSELF AND TWO OTHER RN WITHOUT SUCESS. PROVIDER NOTIFIED AND IV TEAM CONSULTED
[2021-12-01 07:13] VITALS: BP 120/54
[2021-12-01 08:24] VITALS: BP 114/45
[2021-12-01 09:11] VITALS: BP 118/63
--- NOTE | 2021-12-01 10:53 | NUR ---
A #4F MIDLINE WAS PLACED PER HOSPITAL POLICY. THE RIGHT UPPER ARM BASILIC WAS WIDLEY PATENT. THE LINE WAS TRIMMED TO 12CM AND ADVANCED WITHOUT DIFFICULTY. SECURED AND RELEASED FOR USE
[2021-12-01 11:09] LABS: HEMATOCRIT 23.5 % (42.0-52.0); HEMOGLOBIN 7.6 gm/dL (14.0-18.0); MCH 25.5 pg (26.0-34.0); MCHC 32.3 g/dL (28.0-37.0); MCV 78.9 fL (80.0-100.0); RBC 2.98 mil/uL (4.50-6.00); RDW 22.1 % (10.5-14.5); WBC 9.8 thou/uL (4.0-11.0)
[2021-12-01 11:19] LABS: CALCIUM 7.5 mg/dL (8.5-10.1); CREATININE 2.5 mg/dL (0.7-1.3); MAGNESIUM 1.6 mg/dL (1.8-2.4); POTASSIUM 3.6 mmol/L (3.5-5.1)
[2021-12-01 11:53] LABS: URINE BILIRUBIN NEGATIVE (Negative); URINE BLOOD TRACE (Negative); URINE CLARITY CLEAR; URINE COLOR YELLOW; URINE GLUCOSE-RANDOM* NEGATIVE (Negative); URINE KETONES NEGATIVE (Negative); URINE LEUKOCYTES-REFLEX NEGATIVE (Negative); URINE NITRITE-REFLEX NEGATIVE (Negative); URINE PROTEIN (DIPSTICK) NEGATIVE (Negative); URINE SPECIFIC GRAVITY 1.015 (1.005-1.035); URINE UROBILINOGEN 0.2 E.U./dl (0.2-1.0)
--- NOTE | 2021-12-01 12:15 | NUR ---
Case opened to follow for dc planning. Pt well known to from previous admissions and chronic lower ext cellulitis. He functions at a w/c level in his apt and his sister Eulalia checks in on him. He was dc'd to SNF at [facility] in 10/12 for iv atb, therapy and wound care. He was dc'd to home on 11/08/21 with HH per [facility];however [facility] indicates that they did not accept him back on service and do not feel he should be living alone. The pt readmitted with le cellulities and bacteremia. He is weak and side out of his w/c to the floor and had to call ems. He did not have any hh services since his dc from the SNF. His covid test is negative. Referral faxed to [facility] to see if they can accept him again for another snf stay. Will f/u with the pt later today.
--- NOTE | 2021-12-01 13:37 | NUR ---
ASSUMED CARE OF PT UPON ADMISSION TO UNIT AROUND 1200. PT CAME IN THROUGH ED. ADDMITED FOR INCREASING PAIN AND SWELLING IN LEGS. PT ADMITTED WITH RIGHT ARM PICC LINE AND PERIPHERAL IV IN FOREARM. URINALYSIS AND BLOOD CULTURES COLLECTED. PT STARTED ON VANCO FLUIDS AND CEFEPIME. COMPLAINING OF LOWER EXTREMEITY PAIN, REPOSTIONED AND ELEVATED LEGS. GIVEN HYDROCODONE AND TYLENOL. DR LANG NOTIFIED FOR FURTHER PAIN MANAGEMENT OF LOWER EXTREMITIES. ALL VITAL SIGNS WNL. WILL NOTIFIY TEAM ABOUT WOUND CARE FOR THIS PT. WILL CONTINUE TO MONITOR.
[2021-12-01 15:39] VITALS: BP 100/50
--- NOTE | 2021-12-01 16:55 | NUR ---
PERFORMED WOUND CARE ON PT - BILATERAL LOWER EXTREMITIES WITH MORPHINE CREAM, ZEROFORM, KRELEX AND BENITO WRAP. ALSO ADMINISTERED MORPHINE IV PUSH TO PT.
[2021-12-01 19:51] VITALS: BP 108/53
[2021-12-02 03:53] LABS: CALCIUM 7.7 mg/dL (8.5-10.1); MAGNESIUM 1.7 mg/dL (1.8-2.4)
[2021-12-02 04:13] LABS: POTASSIUM 5.2 mmol/L (3.5-5.1)
[2021-12-02 05:35] LABS: HEMATOCRIT 22.3 % (42.0-52.0); HEMOGLOBIN 7.4 gm/dL (14.0-18.0); MCH 25.9 pg (26.0-34.0); MCV 78.5 fL (80.0-100.0); RBC 2.84 mil/uL (4.50-6.00); RDW 22.7 % (10.5-14.5)
[2021-12-02 07:45] VITALS: BP 127/61
--- NOTE | 2021-12-02 08:22 | HC ---
[facility] [address] [address] CONSULTATION Name: GLADIS GIPSON Room #: 438-P ADM IN M.R.#: [id number] Admission: 11/30/21 Attend Phys: Steve Mejia MD Discharge: Date of : 47 Report #: [id number] THIS REPORT FOR: cc: Percy Terrazas K. Steven DO Barry, Joseph W. MD ~ DATE OF SERVICE: 12/01/2021 INFECTIOUS DISEASE CONSULTATION ATTENDING PHYSICIAN: Dr. Mejia. REASON FOR EVALUATION: Gram-negative septicemia, bilateral lower extremity extensive inflammatory eruption with superficial ulcers, skin and soft tissue infection. HISTORY OF PRESENT ILLNESS: Chart reviewed. The patient examined. This is a 76-year-old gentleman, known to myself, had seen him in 09/2021, with similar type complaints, markedly inflamed lower extremities, likely multifactorial. He is mildly encephalopathic. He has underlying diabetes mellitus, psoriatic arthritis and known vasculopathy. At this point, he is wheelchair bound. It is difficult to ascertain the onset of this particular illness due to his diminished capacity, perhaps up to a week. He notes significant pain associated with the lower extremities. It is not clear if he has had fevers. He suggests poor p.o. intake. He was evaluated. Initial lactic acid was elevated at 3.1 and creatinine 3.4 that was up from 1.8 in September. Coronavirus testing was negative. Doppler study of the lower extremities show no evidence of deep venous thrombosis. Blood cultures collected at the time of admission, now with growth of Gram-negative rods, awaiting ID of Serratia marcescens. He is empirically started on antimicrobial therapy with cefepime and vancomycin. He did undergo a chest x-ray, which showed some patchy infiltrates as well. At present, requiring supplemental oxygen support. ALLERGIES: None known. CURRENT MEDICATIONS: Include aspirin, hydrocodone, vancomycin and cefepime. PAST MEDICAL HISTORY: As noted above, diabetes mellitus complicated by vasculopathy, has psoriatic disease with arthritis, hypertension, peripheral neuropathy. SOCIAL HISTORY: Nonsmoker, no ethanol, no illicit drug use. FAMILY HISTORY: Noncontributory. REVIEW OF SYSTEMS: Otherwise, unremarkable. [facility] [address] [place] [address] CONSULTATION Name: GLADIS GIPSON Room #: 438-P [facility] IN [facility].#: [id number] Admission: 11/30/21 Attend Phys: Steve Mejia MD Discharge: Date of : 49 Report #: [id number] PHYSICAL EXAMINATION: GENERAL: He appears chronically ill, in moderate distress, is mildly encephalopathic, undernourished. VITAL SIGNS: Temperature 98.5, pulse 92, respirations 18, blood pressure 100/50. SKIN: Warm, dry, no rashes. HEENT: Normocephalic. Extraocular muscles intact. NECK: Appears to be supple. LUNGS: Diminished breath sounds. Does have scattered crackles bilaterally. HEART: Tachycardic, regular, does have a systolic murmur. ABDOMEN: Soft, mildly distended, nontender. No peritoneal signs. EXTREMITIES: Bilateral lower extremities have marked inflammatory eruption bilaterally to the knee with extensive superficial ulceration, edema. Dermopathy consistent with chronic venous stasis insufficiency and a suspected degree of peripheral arterial disease as well, quite painful. There is significant drainage at this point, although there is no odor. GENITOURINARY AND RECTAL: Deferred. LABORATORY DATA: Blood cultures described above confirmed to be Serratia at least 1 out of 2. Urinalysis unremarkable. Procalcitonin 1.02. Electrolytes: Sodium 141, potassium 3.6, chloride 105, bicarbonate is 26, anion gap of 10, BUN and creatinine 45 and down to 2.5, estimated GFR of 31. CBC: White count of 9.8, H and H 7.6 and 23.5, platelets of 392. Sed rate of 10. Lactic acid on repeat was 0.6. CRP of less than 2.0. ASSESSMENT AND PLAN: Gram-negative septicemia due to Serratia. Presumably, this is skin and soft tissue source, cannot exclude other source such as pneumonitis, does not appear to be related to urinary tract infection. Regardless, we will continue current therapy. Presumably may well have additional organisms including Gram-positive staphylococcus and strep associated with the wounds, continue to use vancomycin in addition to the cefepime, although await further results at this point. His last arterial Doppler showed some generalized disease with no high-grade stenosis. I think it is reasonable to repeat that, that was 05/2021. If that is satisfactory, we would certainly elevate and consider compression. I think it is reasonable to have wound care evaluate as well for treatment protocol. He remains quite tenuous at this point. We will continue to monitor expectantly at risk for complications. <ELECTRONICALLY SIGNED> By: Jorge Cason MD 12/02/21 0822 1525 [id number] Jorge Cason MD /nt
[2021-12-02 18:27] LABS: URINE BILIRUBIN NEGATIVE (Negative); URINE BLOOD NEGATIVE (Negative); URINE CLARITY CLEAR; URINE COLOR YELLOW; URINE GLUCOSE-RANDOM* NEGATIVE (Negative); URINE KETONES NEGATIVE (Negative); URINE LEUKOCYTES-REFLEX NEGATIVE (Negative); URINE NITRITE-REFLEX NEGATIVE (Negative); URINE PROTEIN (DIPSTICK) NEGATIVE (Negative); URINE SPECIFIC GRAVITY 1.015 (1.005-1.035); URINE UROBILINOGEN 0.2 E.U./dl (0.2-1.0)
--- NOTE | 2021-12-02 19:06 | NUR ---
PT A&OX4. PT IS HARD TO UNDERSTAND. PT SEEMED TO COUGH AFTER EATING TODAY. S.T. NOTIFIED. PT IS NOW ON GROUND FOODS. PT ON RA. PT IS INCONTINENT. TOLERATING DIET. WILL CONTNIUE TO MONITOR
[2021-12-02 19:29] VITALS: BP 109/53
[2021-12-03] VITALS (10 sets, daily range): BP systolic 70–128; BP diastolic 39–92
[2021-12-03 05:30] LABS: HCO3 16.8 mmol/L (22.0-26.0); PCO2 27.6 mmHg (35.0-45.0); PO2 69.5 mmHg (80.0-100.0); pH 7.403 (7.360-7.450); sO2 94.4 % (92.0-98.0)
[2021-12-03 06:10] LABS: HEMATOCRIT 22.5 % (42.0-52.0); HEMOGLOBIN 7.1 gm/dL (14.0-18.0); MCH 25.1 pg (26.0-34.0); MCHC 31.4 g/dL (28.0-37.0); MCV 80.1 fL (80.0-100.0); RBC 2.81 mil/uL (4.50-6.00); RDW 22.4 % (10.5-14.5); WBC 12.2 thou/uL (4.0-11.0)
[2021-12-03 06:27] LABS: CALCIUM 7.5 mg/dL (8.5-10.1); CREATININE 2.4 mg/dL (0.7-1.3); MAGNESIUM 1.6 mg/dL (1.8-2.4); POTASSIUM 4.8 mmol/L (3.5-5.1)
--- NOTE | 2021-12-03 06:43 | NUR ---
PT ALERT AND ORIENTED AT START OF SHIFT. HOURLY ROUNDING PERFORMED. ENTERED ROOM AROUND 0500. PT WAS LETHARGIC, SWEATY, AND BREATHING RAPIDLY. ON ASSESSMENT PT WAS EXTREMELY HYPOTENSIVE WITH AND O2 SAT OF 79%. PT PLACED ON 10L NC AND CLIP RIVETER NARRIS NOTIFIED. VERBAL ORDERS GIVEN FOR STAT CHEST X-RAY,CBC, BMP, EKG, ABG, AND NARCAN. CLIP RIVETER AND HOUSE SUP AT BEDSIDE FOR ASSESSMENT. PT RESPONDED WELL TO NARCAN AND IV BOLIS BUT WAS UNABLE TO MAINTAIN O2 SATS OR BLOOD PRESSURE. PT WAS TRANFERED TO CCU FOR A HIGHER LEVEL OF CARE.
--- NOTE | 2021-12-03 06:54 | NUR ---
RECEIVED PATIENT FROM .NILA TIS ON NASAL CANNULA AT 10LPM, SATURATING 96%.CONNECTED TO EXPERIMENTAL MECHANIC OUTBOARD MOTORS SHOWING JUNCTIONAL TACHYCARDIA, RATE IS 115-120BPM.RAYMUNDO IS ALSO TACHYPNEIC, RR IS 24 CYCLES PER MINUTE.CALLED PHARMACY AND INFORMED OF THE VANCOMYCIN TROUGH LEVEL WHICH IS 7, A SPER PHARMACIST HE WILL SEND THE VANCOMYCIN BAG IN THE UNIT.VITALS SIGNS MONITORED AND RECORDED.TO CONTINOUSLY MONITOR.
--- NOTE | 2021-12-03 09:44 | EKG ---
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
[2021-12-03 11:30] LABS: BE(vivo) -3.7 mmol/L (-2 to +3); HCO3 19.7 mmol/L (22.0-26.0); PCO2 28.8 mmHg (35.0-45.0); PO2 74.3 mmHg (80.0-100.0); pH 7.452 (7.360-7.450); sO2 95.8 % (92.0-98.0)
[2021-12-04] VITALS: BP 102/56
--- NOTE | 2021-12-04 02:42 | NUR ---
assessmenta as charted, pt incon't of bowel and bladder at start of shift, given 1 u prbc, prn pain med given for le pain, repositioned as needed, o2 titrated now on 8/l hfc with sats mid 90's iv fluid infusing, bp's remain 90's to low 100's, pt resting quietly in room. will co't to monitor per ppoc.
[2021-12-04 04:45] VITALS: BP 101/61
[2021-12-04 06:59] LABS: HEMATOCRIT 24.3 % (42.0-52.0); HEMOGLOBIN 7.7 gm/dL (14.0-18.0); MCH 25.3 pg (26.0-34.0); MCHC 31.6 g/dL (28.0-37.0); MCV 80.2 fL (80.0-100.0); RBC 3.03 mil/uL (4.50-6.00); RDW 21.2 % (10.5-14.5)
[2021-12-04 07:22] LABS: CALCIUM 7.4 mg/dL (8.5-10.1); CREATININE 2.3 mg/dL (0.7-1.3); MAGNESIUM 1.6 mg/dL (1.8-2.4); POTASSIUM 4.2 mmol/L (3.5-5.1)
[2021-12-04 07:54] VITALS: BP 133/76
[2021-12-04 11:49] VITALS: BP 104/58
[2021-12-04 16:50] VITALS: BP 123/66
--- NOTE | 2021-12-05 04:28 | NUR ---
RECEIVED PATIENT AT 1900H.ASSESSMENT DONE CHARTED.MEDS GIVEN PER JAN.HAD COMPLAINTS OF BOTH LOWER EXTREMITY PAIN,PRN PAIN MED GIVEN.PATIENT REQUESTED TO REMOVE THE PROFO BOOTS AROUND 0300H.TO BE REAPPLIED LATER.ALL NEEDS ATTENDED.TO CONTINOUSLY MONITOR.
[2021-12-05 04:45] VITALS: BP 120/82
[2021-12-05 07:03] LABS: HEMOGLOBIN 7.6 gm/dL (14.0-18.0); MCH 25.1 pg (26.0-34.0); MCHC 31.5 g/dL (28.0-37.0); MCV 79.9 fL (80.0-100.0); RBC 3.01 mil/uL (4.50-6.00); WBC 17.8 thou/uL (4.0-11.0)
[2021-12-05 07:36] LABS: CALCIUM 7.3 mg/dL (8.5-10.1); CREATININE 2.2 mg/dL (0.7-1.3); MAGNESIUM 1.7 mg/dL (1.8-2.4); POTASSIUM 4.4 mmol/L (3.5-5.1)
--- NOTE | 2021-12-05 07:50 | EKG ---
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
[2021-12-05 09:42] VITALS: BP 120/65
--- NOTE | 2021-12-05 10:49 | 2DMMODE ---
[facility] [place] [address] 2 D/M-MODE ECHOCARDIOGRAM Name: GLADIS GIPSON Room #: 205-P ADM IN M.R.#: [id number] Admission: 11/30/21 Attend Phys: Steve Mejia MD Discharge: Date of : 47 Report #: [id number] THIS REPORT FOR: cc: Percy Terrazas K. Steven DO Santiago, Patrick MD [facility] ~ APPROVED REPORT Study performed: 12/05/2021 10:01:47 EXAM: Comprehensive 2D, Doppler, and color-flow Echocardiogram Patient Location: Bedside Room #: 205 Status: routine BSA: 1.67 HR: 97 bpm BP: 120/82 mmHg Rhythm: Sinus tach Indications Elevated BNP. 2D Dimensions RVDd: 38.62 mm IVSd: 11.22 (7-11mm) LVOT Diam: 20.10 (18-24mm) LVDd: 49.35 mm PWd: 9.64 (7-11mm) LVDs: 34.96 (25-40mm) Left Atrium: 34.58 (27-40mm) Aortic Root: 31.85 mm Volumes Left Atrial Volume (Systole) Single Plane 4CH: 45.60 mL Single Plane 2CH: 55.39 mL LA ESV Index: 33.00 mL/m2 Aortic Valve AoV Peak Venancio.: 1.33 m/s AO Peak Gr.: 7.05 mmHg LVOT Max P.63 mmHg LVOT Max V: 0.95 m/s JB Vmax: 2.28 cm2 Pulmonary Valve PV Peak Venancio.: 0.60 m/s PV Peak Gr.: 1.44 mmHg [facility] [address] [place] [address] 2 D/M-MODE ECHOCARDIOGRAM Name: GLADIS GIPSON Room #: 205-P ADM IN Emig[facility].#: [id number] Admission: 11/30/21 Attend Phys: Steve Mejia MD Discharge: Date of : 49 Report #: [id number] Tricuspid Valve TR Peak Venancio.: 3.06 m/s RAP Estimate: 5.00 mmHg TR Peak Gr.: 38.00 mmHg PA Pressure: 43.00 mmHg Left Ventricle The left ventricle is normal size. There is normal left ventricular wall thickness. Left ventricular systolic function is low normal. LVEF is 50-55%. This study is not technically sufficient to allow evaluation of the LV diastolic function. Right Ventricle The right ventricle is normal size. The right ventricular systolic function is normal. Atria Left atrium is at the upper limits of normal. The right atrium size is normal. Aortic Valve Aortic valve leaflets are mildly thickened. No aortic regurgitation is present. There is no aortic valvular stenosis. Mitral Valve The mitral valve is normal in structure. Trace mitral regurgitation. No evidence of mitral valve stenosis. Tricuspid Valve The tricuspid valve is normal in structure. Mild to moderate tricuspid regurgitation. Estimated PAP is 43mmHg. Pulmonic Valve The pulmonary valve is normal in structure. There is no pulmonic valvular regurgitation. Great Vessels The aortic root is normal in size. Ascending aorta is not well visualized. IVC is normal in size and collapses >50% with inspiration. Pericardium There is no pericardial effusion. <Conclusion> Normal left ventricle size/wall thickness [facility] [address] [place] [address] 2 D/M-MODE ECHOCARDIOGRAM Name: GLADIS GIPSON Room #: [address] [place] [address] [place] [facility].#: [id number] Admission: 11/30/21 Attend Phys: Steve Mejia MD Discharge: Date of : 49 Report #: [id number] Ejection fraction 50-55% Normal right ventricle size/function Normal atrial size Normal aortic/mitral valve structure and function Mild to moderate tricuspid valve insufficiency Pulmonary systolic pressure estimated at 43 mmHg No pericardial effusion Normal aortic root size <ELECTRONICALLY SIGNED> By: Tre Finch MD, FACC 12/05/218 47 47 Tre Finch MD, FACC /INF
[2021-12-05 12:23] VITALS: BP 118/65
--- NOTE | 2021-12-05 15:30 | NUR ---
CM CONTINUE TO FOLLOW FOR DC PLANNING. REFERRAL FOR SNF/LTC SENT TO NICOLAS [facility]INE[facility]. WILL FOLLOW UP FOR ACCEPTANCE. PT HAS NOT PARTICIPATED IN PT/OT AT THIS TIME. WILL CONTINUE TO FOLLOW FOR THERAPY PROGRESS AND RECOMMENDATIONS. CM FOLLOWING.
[2021-12-05 16:39] VITALS: BP 122/71
[2021-12-05 20:01] VITALS: BP 136/74
[2021-12-06 03:28] LABS: HEMATOCRIT 23.7 % (42.0-52.0); HEMOGLOBIN 7.8 gm/dL (14.0-18.0); MCH 26.2 pg (26.0-34.0); MCHC 32.8 g/dL (28.0-37.0); MCV 80.1 fL (80.0-100.0); RBC 2.96 mil/uL (4.50-6.00); RDW 20.9 % (10.5-14.5); WBC 17.5 thou/uL (4.0-11.0)
[2021-12-06 03:34] VITALS: BP 144/76
[2021-12-06 03:37] LABS: CALCIUM 7.3 mg/dL (8.5-10.1); MAGNESIUM 1.7 mg/dL (1.8-2.4); POTASSIUM 4.1 mmol/L (3.5-5.1)
--- NOTE | 2021-12-06 05:25 | NUR ---
PT ASSESSMENTS CHARTED, NEEDED FREQUENT REORIENTATION WHEN HE WAKES UP, DESATS WHEN EATING OR TALKING , PRN PAIN MEDS GIVEN NEEDED FOR LE PAIN, DRESINGS REMAIN CDI, VSS, WILL CON'T TO MONITOR PER PPOC.
[2021-12-06 09:27] VITALS: BP 120/76
--- NOTE | 2021-12-06 09:41 | NUR ---
CM MET WITH PT THIS DAY TO FURTHER DISCUSS DC PLANNING. PT VOICED HE HAS HAD THE WORST YEAR AND NOW KNOWS WHY PEOPLE CONTIPLATE SUICIDE. THIS CM ASKED PT IF HE HAD A PLAN HE REPORTED HE HADNT THOUGHT ABOUT THAT YET. HE FURTHER WENT ON ABOUT HIS THOUGHTS REGARDING HIS HEALTH STATUS AND HE DOESNT WANT TO LIVE LIKE THIS. THIS CM CALLED TO SPEAK TO NURSING STAFF TO REPORT THOUGHTS AND REQUEST POSSIBLE PSYCH EVAL. RN VOICED PT VOICED YESTERDAY HE WANTED TO KNOW WHAT THE AFTER LIFE LOOKED LIKE, HE DIDNT WANT TO LIVE ANYMORE, HE HAS LIVED LONG ENOUGH. PTS LOTUS ANTHONY.
[2021-12-06 12:09] VITALS: BP 113/76
[2021-12-06 16:54] VITALS: BP 118/61
[2021-12-06 19:36] VITALS: BP 130/84
--- NOTE | 2021-12-07 03:45 | NUR ---
PATIENT AAOX1-2. ANXIOUS AND IMPULSIVE. PT REPEATEDLY TAKES HIS MASK OFF. PT IS INCONTINENT. INCOHERENT AT TIMES WHEN SPEAKING. DRESSING TO BLE WOUNDS ARE CDI. DENIES ANY PAIN AT THIS TIME. STATES THAT WE ARE KILLING HIM BY HAVING HIM WEAR MASK.
[2021-12-07 03:58] VITALS: BP 137/71
[2021-12-07 07:30] VITALS: BP 144/63
[2021-12-07 07:52] LABS: HEMATOCRIT 27.3 % (42.0-52.0); HEMOGLOBIN 8.2 gm/dL (14.0-18.0); MCH 24.8 pg (26.0-34.0); MCV 82.6 fL (80.0-100.0); RBC 3.3 mil/uL (4.50-6.00); RDW 21.7 % (10.5-14.5); WBC 19.2 thou/uL (4.0-11.0)
[2021-12-07 08:06] LABS: CALCIUM 7.9 mg/dL (8.5-10.1); CREATININE 1.9 mg/dL (0.7-1.3); POTASSIUM 4.6 mmol/L (3.5-5.1)
--- NOTE | 2021-12-07 11:15 | NUR ---
Discussed during los with the attending physician. Few more days, no anticpated dc today. Cm tried to visit with. bedside nurse with him. James had removed his high flow o2 and desaturation into the 80's. Noncompliant with oxygen. He is ready to go home per jaems. Cm assisted bedside rn to reposition him in bed, cm tried to get him to stop talking but he would not. End of visit resp therapy in room as well. Will cont following as needed.
[2021-12-07 16:30] VITALS: BP 149/78
[2021-12-07 19:46] VITALS: BP 116/42
--- NOTE | 2021-12-08 02:54 | NUR ---
PATIENT AAOX2. CONTINUES TO STATE THAT HE WANTS TO GO BACK HOME. HE IS MORE COOPERATIVE TONIGHT THAN PREVIOUSLY. NOTED THAT PATIENT WAS SUPPOSED TO HAVE TAP WATER ENEMA AT 0130 12/07/21 THAT WAS NOT ADMINISTERED. PATIENT DENIES ANY ABDOMINAL DISTRESS AND IS PASSING GAS. ENEMA WILL BE ADMINISTERED IN AM WHEN PATEINT IS UP FOR THE DAY. HIS DRESSINGS ARE CDI. HE DENIES PAIN AT THIS TIME. VSS. WILL CONTINUE TO MONITOR FOR CHANGES IN STATUS.
[2021-12-08 04:44] VITALS: BP 145/85
[2021-12-08 07:57] VITALS: BP 140/90
[2021-12-08 11:00] LABS: HEMATOCRIT 25.5 % (42.0-52.0); MCH 25.1 pg (26.0-34.0); MCHC 31.4 g/dL (28.0-37.0); PLATELET COUNT 359 thou/uL (150-400); RBC 3.19 mil/uL (4.50-6.00); RDW 21.3 % (10.5-14.5)
[2021-12-08 11:21] LABS: ALBUMIN 1.5 g/dL (3.4-5.0); CALCIUM 7.6 mg/dL (8.5-10.1); CREATININE 1.8 mg/dL (0.7-1.3); POTASSIUM 4.1 mmol/L (3.5-5.1); TOTAL BILIRUBIN 0.2 mg/dL (0.2-1.0); TOTAL PROTEIN 5.8 g/dL (6.4-8.2)
[2021-12-08 12:02] LABS: ABSOLUTE NEUTROPHILS 19.2 thou/uL (1.4-8.2); ANISOCYTOSIS 1+
[2021-12-08 15:24] VITALS: BP 147/93
[2021-12-09 00:50] LABS: BE(vivo) -4.5 mmol/L (-2 to +3); HCO3 19.3 mmol/L (22.0-26.0); PCO2 30.7 mmHg (35.0-45.0); PO2 87.6 mmHg (80.0-100.0); pH 7.417 (7.360-7.450); sO2 96.9 % (92.0-98.0)
--- NOTE | 2021-12-09 05:32 | NUR ---
DURING THIS SHIFT PATIENT HAS BEEN IMPULSIVE CONFUSED AND HYPERVERBAL. HAS HAD PERIODS OF VISUAL HALLUCINATIONS. REFUSES TO KEEP OXYGEN ON AND PULLED OUT HIS MIDLINE PRIOR TO START OF THIS SHIFT. HE DOES NOT FOLLOW COMMANDS AND REQUIRES FREQUENT REDIRECTION WHICH IS ALSO INEFFECTIVE. PATIENT HAS ATTEMPTED TO SPIT AND BITE STAFF MEMBERS. HAVE ATTEMPTED SEVERAL MEASURES TO HELP PATIENT WITH PAIN AND ANXIETY. HE WAS ALSO STARTED ON REMERON TONIGHT WHICH HAS ALSO BEEN EFFECTIVE. AFTER BEING UNABLE TO SAFELY STABILIZE PATIENT SAFELY SOFT RESTRAINTS WERE INITIATED. DURING THIS SHIFT PATIENT HAS HAD 3 BOWEL MOVEMENTS. HIS DRESSINGS REMAIN CDI. PATIENT REMAINS ON OPTIFLOW AT 55 LITERS AND 60% FiO2. WILL CONTINUE TO MONITOR FOR CHANGES IN STATUS.
[2021-12-09 05:51] LABS: ALBUMIN 1.6 g/dL (3.4-5.0); CALCIUM 7.5 mg/dL (8.5-10.1); CREATININE 1.9 mg/dL (0.7-1.3); PHOSPHORUS 3.8 mg/dL (2.5-4.9); POTASSIUM 4.5 mmol/L (3.5-5.1)
[2021-12-09 07:30] VITALS: BP 128/83
[2021-12-09 10:10] LABS: URINE BILIRUBIN NEGATIVE (Negative); URINE BLOOD 1+ (Negative); URINE CLARITY CLEAR; URINE COLOR YELLOW; URINE GLUCOSE-RANDOM* NEGATIVE (Negative); URINE KETONES NEGATIVE (Negative); URINE LEUKOCYTES-REFLEX NEGATIVE (Negative); URINE NITRITE-REFLEX NEGATIVE (Negative); URINE PROTEIN (DIPSTICK) TRACE (Negative); URINE SPECIFIC GRAVITY >= 1.030 (1.005-1.035); URINE UROBILINOGEN 0.2 E.U./dl (0.2-1.0)
[2021-12-09 10:20] LABS: BACTERIA-REFLEX 1-9 Few /HPF (None Seen); CASTS None Seen /LPF (None Seen); CRYSTALS None Seen /LPF (None Seen); SQUAMOUS None Seen /LPF (0-3); URINE RBC 3-10 Few /HPF (NONE SEEN); URINE WBC-REFLEX 0-5 Rare /HPF (0-5)
[2021-12-09 11:28] LABS: HEMATOCRIT 27.6 % (42.0-52.0); HEMOGLOBIN 8.4 gm/dL (14.0-18.0); MCH 25.1 pg (26.0-34.0); MCHC 30.6 g/dL (28.0-37.0); MCV 82.1 fL (80.0-100.0); PLATELET COUNT 395 thou/uL (150-400); RBC 3.36 mil/uL (4.50-6.00); WBC 16.8 thou/uL (4.0-11.0)
--- NOTE | 2021-12-09 11:42 | NUR ---
WOUND CARE F/U: THE PATIENT WAS EMOTIONALLY LABILE WITH ME TODAY. THE RN TODAY IS WELL AWARE AND IS REC'D ORDERS TO ADDRESS. THE LE'S HAVE AREAS OF CAPPILARY BLEEDING CONSISTANT WITH AN INFECTION. I WAS ABLE TO FINISH THE DRESSING CHANGE WITH THE RN'S HELP. CONTINUE CURRENT DRESSING ORDERS.
[2021-12-09 12:35] LABS: ABSOLUTE NEUTROPHILS 16.1 thou/uL (1.4-8.2); ANISOCYTOSIS 2+
--- NOTE | 2021-12-09 14:38 | NUR ---
CHART REVIEWED AND DISCUSSED WITH CARE TEAM. NO ANTICIPATED DISCHARGE THIS WEEKEND. PT NOW IN SOFT RESTRAINTS R/T BEING IMPULSIVE. REMAINS ON HIGH FLOW OXYGEN. PT/OT UNABLE TO MAKE DC RECOMMENDATIONS PT CURRENTLY UNABLE TO PARTICIPATE R/T HEALTH STATUS. CM WILL CONTINUE TO FOLLOW FOR DC PLANNING.
[2021-12-09 16:00] VITALS: BP 140/74
--- NOTE | 2021-12-09 19:34 | NUR ---
ASSUMED PATIENT CARE AT 0700, PATIENT CONFUSED AND AGGITATED. YELLING "GET AWAY FROM ME, LET ME GO, LET ME ". DR. HADLEY MADE AWARE OF THIS. PT CONTINUED TO HAVE INCREASED OXYGEN DEMANDS, PAIN AND AGGITATION. NEPHTRENA WILLARD VISITED PATIENT TODAY, DR. HADLEY SPOKE WITH NEPHEW AT BEDSIDE AND DECISION WAS MADE TO MAKE PATIENT DNR AND NOT TO INTUBATE. PALLATIVE CARE WAS CONSULTED. PALLATIVE ROUNDED AT END OF SHIFT AND SPOKE WITH SUDHEER ON THE PHONE, IT WAS DECIDED TO MAKE PATIENT COMOFORT CARE. ORDERS PLACED WITH HEAT SEALING MACHINE OPERATOR DURING ROUND. REPORT GIVEN TO PRINTER APPRENTICE NURSE AND UPDATED ON CHANGE.
[2021-12-09 21:35] VITALS: BP 123/57
--- NOTE | 2021-12-10 02:49 | NUR ---
PT TRANSFERRED FROM , REPORT RECIEVED FROM POONAM GAUTAM. PT ORIENTED TO SURROUNDINGS, LETHARGIC AND SLEEPING. OXYGEN ON. LUE ML CDI. OLIVERA IN PLACE AND DRAINING. Q2 HOUR REPOSITIONING FOR COMFORT. NO SIGNS OR SYMPTOMS INDICATING PAIN OR DISCOMFORT AT THIS TIME. HOURLY ROUNDING CONTINUING. CALL LIGHT IN REACH
--- NOTE | 2021-12-10 06:41 | NUR ---
NOTIFIED MAHOGANY, NEXT OF KIN AND PERSON TO NOTIFY, OF PTS ROOM AND FLOOR CHANGE
--- NOTE | 2021-12-10 10:53 | EKG ---
[address] [address] ELECTROCARDIOGRAM REPORT Name: GLADIS GIPSON Room #: 439-P ADM IN .R.#: [id number] Admission: 11/30/21 Attend Phys: Steve Mejia MD Discharge: Date of : 49 Report #: [id number] [facility] Test Date: 2021-12-09 Test Time: 11:38:14 Pat Name: GLADIS GIPSON Department: Room: 439 Gender: M Insecticide Expert: LINDSAY : 1945 Requested By: Jeremie Carter Order Number: [id number] MD: Trevor Marcial Measurements Intervals Fletcher Rate: 104 P: 86 WI: 184 QRS: -33 QRSD: 83 T: 33 QT: 379 QTc: 499 Interpretive Statements Sinus tachycardia Inferior infarct, old Compared to ECG 12/03/2021 07:58:58 Myocardial infarct finding still present Electronically Signed On 12-10-2021 10:52:53 GREENKEEPER by Trevor Marcial [email or web address] <ELECTRONICALLY SIGNED> By: Trevor Marcial MD 12/10/21 1052 1138 113 Trevor Marcial MD /ANGELO
--- NOTE | 2021-12-11 02:11 | NUR ---
ASSUMED CARE OF PT AT 1900 REPORT RECIEVED MARIANNE ASSESSMENT COMPLETE. PT AWAKE, DISORIENTED, YELLING OUT. COMFORT CARE MEDS GIVEN INDICATED THROUGHOUT NIGHT. PT KEEPS PULLING OFF NASAL CANNULA AND TUGGING AT OLIVERA, REDIRECTION PROVIDED. Q2 HOUR TURNS FOR COMFORT, THERAPUETIC COMMUNCATION UTILIZIED. PT SIPPED WATER, ASSISTED FEED ICE CREAM. HOURLY ROUNDING CONTINUING, CALL LIGHT IN REACH
[2021-12-11 07:58] VITALS: BP 160/89
--- NOTE | 2021-12-11 15:53 | NUR ---
PATIENT CONTINUES TO HAVE PERIODS OF AGITATION. SPENT MOST OF SHIFT SLEEPING. TACHYPNEA NOTED. O2 FOR COMFORT. HALDOL,ATIVAN, AND MORPHINE GIVEN NEEDED FOR COMFORT
[2021-12-11 16:36] VITALS: BP 120/69
--- NOTE | 2021-12-12 03:34 | NUR ---
ASSUMED CARE OF PT AT 1900. REPORT RECIEVED. MARIANNE ASSESSMENT COMPLETE. PT GOES THRU PERIODS OF SLEEPING AND YELLING OUT. COMFORT CARE MEDS GIVEN INDICATED. NC IN PLACE. OLIVERA IN PLACE. ORAL CARE REFUSED. LABORED BREATHING NOETD. HOURLY ROUNDING CONTINUING CALL LIGHT IN REACH
[2021-12-12 07:48] VITALS: BP 145/77
== END 2021-12-12 18:25 | DRG 871 ==
LOC: ER 11:04 → 2N 14:15 → 4S 14:15 → EROBS 14:15 → 4S 12-01 08:52 → 2N 12-03 06:09 → 4S 12-09 23:30
PROVIDERS: Hospitalist; Internal Medicine; Nurse Practitioner Family; Specialist; Student in an Organized Health Care Education/Training Program; ADMIT Internal Medicine; ATTEND Internal Medicine
DX: A41.53 Sepsis due to Serratia (principal); E43 Unspecified severe protein-calorie malnutrition; J96.01 Acute respiratory failure with hypoxia; J18.9 Pneumonia, unspecified organism; N39.0 Urinary tract infection, site not specified; N17.9 Acute kidney failure, unspecified; L03.116 Cellulitis of left lower limb; L03.115 Cellulitis of right lower limb; I10 Essential (primary) hypertension; M06.9 Rheumatoid arthritis, unspecified; E87.6 Hypokalemia; I87.2 Venous insufficiency (chronic) (peripheral); E11.51 Type 2 diabetes mellitus with diabetic peripheral angiopathy without gangrene; E11.42 Type 2 diabetes mellitus with diabetic polyneuropathy; R53.81 Other malaise; L40.50 Arthropathic psoriasis, unspecified; D63.1 Anemia in chronic kidney disease; K56.41 Fecal impaction; Z20.822 Contact with and (suspected) exposure to COVID-19; R65.20 Severe sepsis without septic shock; J84.10 Pulmonary fibrosis, unspecified; Z51.5 Encounter for palliative care; Z99.3 Dependence on wheelchair; Z23 Encounter for immunization; Z68.27 Body mass index [BMI] 27.0-27.9, adult
CPT/HCPCS: 10081; 10102; 10194; 10195; 27000